=== PATIENT | female | born 1955 | race Caucasian/White ===

== ENCOUNTER → 2016-12-19 | Outpatient (CLI) | payer OTHER ==
--- NOTE | 2016-12-19 15:10 | CT ---
CT of the left lower extremity, without contrast (Jacinto protocol). HISTORY: Left knee osteoarthritis. TECHNIQUE: Axial CT images of the left hip, knee, and ankle are obtained utilizing Jacinto protocol. FINDINGS: Images of the left hip are unremarkable. Images of the left knee demonstrate moderate tricompartment osteoarthritis, most severe within the la teral compartment. Surgical features of intra-articular anterior cruciate ligament reconstruction ivette ntified with femoral and tibial tunnels. Images of the left ankle appear unremarkable. IMPRESSION: 1. Tricompartment left knee osteoarthritis post ACL reconstruction. Jacinto protocol for arthroplasty.
== END ==
LOC: FIMAGING 11:23
PROVIDERS: ATTEND Orthopaedic Surgery
DX: M17.12 Unilateral primary osteoarthritis, left knee (principal)

== ENCOUNTER 2017-01-19 09:08 | Inpatient (IN) | payer OTHER ==
[2017-01-06 09:42] LABS: % IMMATURE GRANULYOCYTES 0.4 % (0.0-1.1); ABSOLUTE IMMATURE GRANULOCYTES 0.03 10^3/uL (0.00-0.10); ADD DIFF? NO; ADD MORPH? NO; ADD SCAN? NO; ATYPICAL LYMPHOCYTE FLAG 0 (0-99); FRAGMENT RBC FLAG 0 (0-99); HEMATOCRIT 39.9 % (38.0-47.0); LEFT SHIFT FLG 0 (0-99); LIPEMIA HEMOLYSIS FLAG 90 (0-99); MEAN CELL HEMOGLOBIN 29.4 pg (27.9-34.1); MEAN CELL HEMOGLOBIN CONCENTR. 35.1 g/dL (32.4-36.7); MEAN CELL VOLUME 83.8 fL (81.5-99.8); MEAN PLATELET VOLUME 8.7 fL (8.7-11.7); PLATELET CLUMPS FLAG 0 (0-99); PLATELET COUNT 207 10^3/uL (150-400); RED BLOOD CELL COUNT 4.76 10^6/uL (4.18-5.33); RED CELL DISTRIBUTION WIDTH 12.1 % (11.5-15.2)
--- NOTE | 2017-01-06 09:51 | CPEKG ---
Heart Rate: 69 RR Interval: 870 P-R Interval: 160 QRSD Interval: 86 QT Interval: 400 QTC Interval: 429 P Adair: 41 QRS [place]air: 30 T Wave Adair: 51 EKG Severity - NORMAL ECG - EKG Impression: SINUS RHYTHM Electronically Signed By: Jesus Sykes 06-Jan-2017 10:54:31
[~2017-01-19 09:08] MED LIST: ACETAMINOPHEN 325 MG TAB PO ONE; CEFAZOLIN 2 GM/DEXTR 100 ML IV ONE; CHLORHEXIDINE GLUC HIBICLENS 118 ML BTL TP ONE; DEXAMETHASONE 4 MG/ML VIAL IVP ONE; FAMOTIDINE 20 MG TAB PO ONE; ROPI/epiNEPH/KETOROLAC JOINT COCKTAIL IU ONE; SKIN ADHESIVE (DERMABOND) 1 EACH TP ONE; TRANEXAMIC ACID 3,000 MG in NS 50 ML IRR ONE; TRANEXAMIC ACID 3,000 MG/50 ML BAG IRR ONE; VANCOMYCIN 1 GM VIAL IV ONE
[2017-01-19] MEDS ORDERED: DEXAMETHASONE 4 MG/ML VIAL ONE (09:25)
[2017-01-19] MEDS ORDERED: FAMOTIDINE 20 MG TAB ONE (09:25)
[2017-01-19] MEDS ORDERED: CEFAZOLIN 2 GM/DEXTROSE/100 ML BAG IV ONE (09:26)
[2017-01-19] MEDS ORDERED: ACETAMINOPHEN 325 MG TAB ONE (09:26)
[2017-01-19] MEDS ORDERED: LIDOCAINE 1% 5 ML SDV ONE (09:26)
[2017-01-19] MEDS ORDERED: LR 1,000 ML IV ONE (09:30)
[2017-01-19] MEDS ORDERED: LIDOCAINE 1% 5 ML SDV ID PRN (09:30)
[2017-01-19] MEDS ORDERED: MIDAZOLAM 2 MG/2 ML VIAL ONE ×2 (11:22→11:35)
[2017-01-19] MEDS ORDERED: PROPOFOL 200 MG/20 ML VIAL ONE ×3 (11:33→12:49)
[2017-01-19] MEDS ORDERED: fentaNYL 100 MCG/2 ML INJ ONE (11:33)
[2017-01-19] MEDS ORDERED: POLYETHYLENE GLYCOL 3350 17 GM PKT PO PRN (11:47)
[2017-01-19] MEDS ORDERED: LACTULOSE 20 GM/30 ML UDCUP PO PRN (11:47)
[2017-01-19] MEDS ORDERED: PROMETHAZINE HCL 25 MG SUPPR PR PRN (11:47)
[2017-01-19] MEDS ORDERED: ONDANSETRON DISINTEGRATING 4 MG TAB PO PRN (11:47)
[2017-01-19] MEDS ORDERED: TEMAZEPAM 15 MG CAP PO PRN (11:47)
[2017-01-19] MEDS ORDERED: PHARMACY PAIN CONSULT 1 EA MISC PRN (11:47)
[2017-01-19] MEDS ORDERED: ONDANSETRON 4 MG/2 ML VIAL IVP PRN (11:47)
[2017-01-19] MEDS ORDERED: DIPHENOXYLATE/ATROPINE LOMOTIL 1 TAB PO PRN (11:47)
[2017-01-19] MEDS ORDERED: diphenhydrAMINE 25 MG CAP PO PRN (11:47)
[2017-01-19] MEDS ORDERED: MAGNESIUM HYDROXIDE 30 ML UDCUP PO PRN (11:47)
[2017-01-19] MEDS ORDERED: PROMETHAZINE HCL 25 MG/ML INJ IVP PRN (11:47)
[2017-01-19] MEDS ORDERED: BISACODYL 10 MG SUPP PR PRN (11:47)
[2017-01-19] MEDS ORDERED: ONDANSETRON 4 MG/2 ML VIAL ONE (12:11)
[2017-01-19] MEDS ORDERED: ROPIVACAINE HCL 150 MG/30 ML INJ ONE (12:11)
[2017-01-19] MEDS ORDERED: MEPERIDINE 25 MG/ML SYR ONE (13:24)
--- NOTE | 2017-01-19 13:27 | POSTOPPROG ---
Post Op Note Date of Operation: 01/19/17 Surgeon: Jolynn Bernard Health Information Systems Technician: Estela Bernard PAc Anesthesiologist: Angel Anesthesia: Spinal Pre-op Diagnosis: L knee DJD Post-op Diagnosis: same Indication: pain Procedure: L TKA with robotic assist Findings: DJD knee Inf/Abcess present in the surg proc area at time of surgery?: No EBL: 50-100
[2017-01-19] MEDS: LR 1,000 ML IV SCH ×2 (15:25→23:45)
[2017-01-19] MEDS: oxyCODONE IR 5 MG TAB PO PRN ×3 (15:31→23:43)
[2017-01-19] MEDS: ACETAMINOPHEN 325 MG TAB PO SCH ×3 (16:01→23:43)
[2017-01-19] MEDS: ceFAZolin 2 GM in D5W 100 ML IV SCH ×2 (16:02→21:13)
--- NOTE | 2017-01-19 16:33 | GOP ---
DATE OF OPERATION: 01/19/2017 SURGEON: Ginny Bernard MD FUEL ASSEMBLER: TEVIN Anne ANESTHESIA: Spinal. PREOPERATIVE DIAGNOSIS: Left knee osteoarthritis. POSTOPERATIVE DIAGNOSIS: Left knee osteoarthritis. PROCEDURE PERFORMED: Left total knee arthroplasty with computer navigation and robotic assist. FINDINGS/PATHOLOGY: Severe lateral and patellofemoral osteoarthritis. ESTIMATED BLOOD LOSS: 30 cc. INDICATIONS: This is a 61-year-old female with severe and progressive pain and deformity of the left knee unresponsive to conservative care. Risks and benefits of the surgical intervention were explained in detail. DESCRIPTION OF PROCEDURE: The patient was brought to the operative room and placed on the table in the supine position. Spinal anesthesia was induced without difficulty. A pneumatic tourniquet was applied about the left proximal thigh, and the leg was prepped and draped in a sterile fashion. The leg becker was applied. After exsanguination by elevation the tourniquet was inflated to 275 mm of mercury. Incision was made anterior medial from the tibial tuberosity to a point 2 cm proximal to the superior pole of the patella. Medial parapatellar arthrotomy was carried out from the superior pole of the patella and posteriorly in line with the fibers of the Type II VMO. The medial collateral ligament was elevated and the infrapatellar fat pad was resected. The patella was everted and the articular surface was excised. A 32 mm patellar button was placed. Attention was turned first to the distal aspect of the left femur. At 3 cm proximal to the medial rise of the femur, 2 percutaneous half pins were placed for fixation of the femoral array. In a similar fashion, 2 pins were placed anteromedial on the tibia for fixation of the tibial array. External land marking and registration of the hip center was performed without difficulty. Internal femoral and tibial registration was carried out without difficulty and the femoral and tibial checkpoints were placed and verified for accuracy. Attention was turned to the femur. The foot print for the size 4 femoral component was cut with the saw using the [facility] robotic system and verified for accuracy against the CT based plan. In a similar fashion, saw was used to cut the footprint for the size 4 tibial component using the [employer] system and verified for accuracy against the CT based plan. The tibial articular surface was excised without difficulty, followed by the intercondylar box cut. The knee was extended and the remnants of the medial and lateral meniscus were excised. The posterior capsule was injected with ropivacaine, epinephrine and Toradol. A size 4 MIS mini-keel tibial tray was positioned. Trial reduction was then carried out. There was excellent range of motion, alignment, and stability using the 9 mm polyethylene. All trials were then removed. The joint was thoroughly irrigated and carefully dried. Two packages of cement and 2 grams of vancomycin were mixed in the vacuum mixer and placed on the fixation surfaces of all surfaces of the components. The components were implanted and all excess cement was thoroughly removed. The permanent 9 mm polyethylene was placed without difficulty. The tourniquet was deflated and all bleeders were coagulated. The wound was thoroughly irrigated and closed using interrupted sutures of 2-0 Vicryl for the joint capsule. The subcu was closed with 3-0 Vicryl and the skin with 4-0 Monocryl. Dermabond and Steri-Strips were applied followed by a compressive dressing. The patient was then moved from the operating room to the recovery room in good condition, having tolerated the procedure well. /[id number]/MODL MTDD
[2017-01-19] MEDS: CYCLOBENZAPRINE 10 MG TAB PO PRN (19:15)
[2017-01-19] MEDS: ASPIRIN 325 MG TAB PO SCH (21:13)
[2017-01-19] MEDS: SENNOSIDES/DOCUSATE SODIUM TAB PO SCH (21:13)
[2017-01-19] MEDS: FAMOTIDINE 20 MG TAB PO SCH (21:13)
[2017-01-20] MEDS: CYCLOBENZAPRINE 10 MG TAB PO PRN ×2 (03:46→12:01)
[2017-01-20] MEDS: oxyCODONE IR 5 MG TAB PO PRN ×3 (03:46→12:01)
[2017-01-20] MEDS: ACETAMINOPHEN 325 MG TAB PO SCH ×2 (05:06→12:01)
[2017-01-20 05:37] LABS: HEMATOCRIT 30.6 % (38.0-47.0); HEMOGLOBIN 10.7 g/dL (12.6-16.3)
[2017-01-20] MEDS ORDERED: LEVOTHYROXINE 150 MCG TAB PO SCH (06:00)
[2017-01-20 07:55] VITALS: TEMP 98
[2017-01-20] MEDS: SENNOSIDES/DOCUSATE SODIUM TAB PO SCH (08:57)
[2017-01-20] MEDS: ASPIRIN 325 MG TAB PO SCH (08:57)
[2017-01-20] MEDS: FAMOTIDINE 20 MG TAB PO SCH (08:58)
[2017-01-20] MEDS ORDERED: ATORVASTATIN CALCIUM 20 MG TAB PO SCH (09:00)
[2017-01-20] MEDS ORDERED: VENLAFAXINE XR 75 MG CAP PO SCH (09:00)
[2017-01-20 11:50] VITALS: BP 132/66; PULSE 71; RESP 20; O2SAT 94
== END 2017-01-20 12:59 | disposition home or self-care (01) | DRG 470 ==
LOC: F3N 09:08
PROVIDERS: ADMIT Orthopaedic Surgery; ATTEND Orthopaedic Surgery
DX: M17.12 Unilateral primary osteoarthritis, left knee (principal)
CPT/HCPCS: 97116-GP; 97161-GP; 97165-GO; C1713; J0171; J0690; J1100; J1885; J2250; J2405; J2704; J2795; J3010; J3370

== ENCOUNTER 2017-08-10 07:15 | Inpatient (IN) | payer OTHER ==
[2017-09-14] MEDS ORDERED: ROPIVACAINE 0.2% 80 MG, EPINEPHrine 0.2 MG, KETOROLAC TROMETHAMINE 30 MG in BAG 0 ML IU ONE (06:00)
[2017-09-14] MEDS ORDERED: TRANEXAMIC ACID 3,000 MG in NS 50 ML IRR ONE (06:00)
--- NOTE | 2017-09-14 07:10 | PDHPUP ---
History & Physical Update H&P update statement: This history and physical update is based on an assessment of the patient which was completed after admission or registration (within 24 hours), but prior to the surgery/procedure. H&P update: H&P reviewed & patient examined, no change in patient's condition since H&P completed
[2017-09-14] MEDS ORDERED: FAMOTIDINE 20 MG TAB PO ONE (07:30)
[2017-09-14] MEDS ORDERED: ceFAZolin 2 GM/DEXTROSE 100 ML IV ONE (07:30)
[2017-09-14] MEDS ORDERED: DEXAMETHASONE 4 MG/ML VIAL IVP ONE (07:30)
[2017-09-14] MEDS ORDERED: ACETAMINOPHEN 325 MG TAB PO ONE (07:30)
[2017-09-14] MEDS ORDERED: LIDOCAINE 1% 2 ML INJ ID PRN (07:32)
[2017-09-14] MEDS ORDERED: LR 1,000 ML IV ONE (07:32)
[2017-09-14] MEDS ORDERED: VANCOMYCIN 1 GM VIAL ONE (07:38)
[2017-09-14] MEDS ORDERED: TRANEXAMIC ACID 3,000 MG/50 ML BAG IRR ONE (07:38)
[2017-09-14] MEDS ORDERED: MIDAZOLAM 2 MG/2 ML VIAL IVP ONE (09:10)
--- NOTE | 2017-09-14 09:10 | PDANEPAE ---
ANE History of Present Illness Knee OA ANE Past Medical History - Cardiovascular History Hx Hypertension: Yes Hx Arrhythmias: No Hx Chest Pain: No Hx Coronary Artery / Peripheral Vascular Disease: No Hx CHF / Valvular Disease: No Hx Palpitations: No Cardiovascular History Comment: high chol - Pulmonary History Hx COPD: No Hx Asthma/Reactive Airway Disease: No Hx Recent Upper Respiratory Infection: No Hx Oxygen in Use at Home: No Hx Sleep Apnea: No Sleep Apnea Screening Result - Last Documented: Negative Pulmonary History Comment: URI 11/2016 - Neurologic History Hx Cerebrovascular Accident: No Hx Seizures: No Hx Dementia: No - Endocrine History Hx Diabetes: No Endocrine History Comment: HYPOTHYROID - Renal History Hx Renal Disorders: No - Liver History Hx Hepatic Disorders: No - Neurological & Psychiatric Hx Hx Neurological and Psychiatric Disorders: Yes Neurological / Psychiatric History Comment: DEPRESSION. HEADACHES - Cancer History Hx Cancer: No - Congenital Disorder History Hx Congenital Disorders: No - GI History Hx Gastrointestinal Disorders: No - Other Health History Other Health History: OSTEOARTHRITIS. HAD PREV SKIN RASH FOR 8 MONTHS. NO DX MADE - Chronic Pain History Chronic Pain: Yes (LT KNEE) - Surgical History Prior Surgeries: LT KNEE ANE Review of Systems Review of Systems: - Exercise capacity METS (RN): 3 METS ANE Patient History - Allergies Allergies/Adverse Reactions: meperidine HCl [From Demerol] Allergy (Verified 08/17/17 11:44) Vomiting - Home Medications Home medications: home medication list seen and reviewed Home Medications: Atorvastatin Calcium [Lipitor 20 mg (*)] 20 mg PO HS 12/21/16 [Last Taken 06:30] Levothyroxine [Synthroid 150 mcg (*)] 150 mcg PO DAILY06 12/21/16 [Last Taken 06:30] amLODIPine BESYLATE [Norvasc 10 mg (*)] 10 mg PO DAILY 01/18/17 [Last Taken 06:30] Multivitamins [Multivitamin (*)] 1 each PO DAILY 07/05/17 [Last Taken 09/07/17] Venlafaxine HCl [Venlafaxine HCl ER] 150 mg PO DAILY 07/05/17 [Last Taken 06:30] - NPO status NPO Since - Liquids (Date): 09/14/17 NPO Since - Liquids (Time): 06:00 NPO Since - Solids (Date): 09/13/17 NPO Since - Solids (Time): 19:00 - Anes Hx Anes Hx: no prior problems - Smoking Hx Smoking Status: Former smoker - Family Anes Hx Family Hx Anesthesia Complications: NEG ANE Labs/Vital Signs - Vital Signs Blood Pressure: 162/81 Heart Rate: 77 Respiratory Rate: 16 O2 Sat (%): 95 Height: 167.64 cm Weight: 96.162 kg ANE Physical Exam - Airway Neck exam: FROM Mallampati Score: Class 2 Mouth exam: normal dental/mouth exam - Pulmonary Pulmonary: no respiratory distress - Cardiovascular Cardiovascular: regular rate and rhythym - ASA Status ASA Status: II ANE Anesthesia Plan Anesthesia Plan: MAC, spinal Regional Anesthesia: adductor canal FNB (Plan adductor canal in PAR)
[2017-09-14] MEDS ORDERED: MIDAZOLAM 2 MG/2 ML VIAL ONE (09:11)
[2017-09-14] MEDS ORDERED: PROPOFOL/EMULSION 500 MG/50 ML BOTTLE IV ONE ×2 (09:16→10:01)
[2017-09-14] MEDS ORDERED: NALOXONE HCL 0.4 MG/ML INJ IVP PRN (09:48)
[2017-09-14] MEDS ORDERED: HYDROmorphONE/DILAUDID 1 MG/ML INJ IVP PRN (09:48)
[2017-09-14] MEDS ORDERED: fentaNYL 100 MCG/2 ML INJ IVP PRN (09:48)
[2017-09-14] MEDS ORDERED: ONDANSETRON 4 MG/2 ML VIAL IVP PRN ×2 (09:48→10:52)
[2017-09-14] MEDS ORDERED: ROPIVACAINE HCL 150 MG/30 ML INJ ONE (10:37)
[2017-09-14] MEDS ORDERED: PROMETHAZINE HCL 25 MG SUPPR PR PRN (10:52)
[2017-09-14] MEDS ORDERED: ONDANSETRON DISINTEGRATING 4 MG TAB PO PRN (10:52)
[2017-09-14] MEDS ORDERED: PROMETHAZINE HCL 25 MG/ML INJ IVP PRN (10:52)
[2017-09-14] MEDS ORDERED: LACTULOSE 20 GM/30 ML UDCUP PO PRN (10:52)
[2017-09-14] MEDS ORDERED: MAGNESIUM HYDROXIDE 30 ML UDCUP PO PRN (10:52)
[2017-09-14] MEDS ORDERED: DIPHENOXYLATE/ATROPINE LOMOTIL 1 TAB PO PRN (10:52)
[2017-09-14] MEDS ORDERED: diphenhydrAMINE 25 MG CAP PO PRN (10:52)
[2017-09-14] MEDS ORDERED: CYCLOBENZAPRINE 10 MG TAB PO PRN (10:52)
[2017-09-14] MEDS ORDERED: BISACODYL 10 MG SUPP PR PRN (10:52)
[2017-09-14] MEDS ORDERED: POLYETHYLENE GLYCOL 3350 17 GM PKT PO PRN (10:52)
[2017-09-14] MEDS ORDERED: TEMAZEPAM 15 MG CAP PO PRN (10:52)
--- NOTE | 2017-09-14 10:52 | POSTOPPROG ---
Post Op Note Date of Operation: 09/14/17 Surgeon: Jolynn Roldan Teacher Of The Sight Impaired: piedad roldan Anesthesiologist: dr. flores Anesthesia: Spinal, Other (Specify) (adductor canal block) Pre-op Diagnosis: R knee OA Post-op Diagnosis: same Indication: right knee pain due to OA that failed conservative measures Procedure: R TKA robot assisted Findings: severe knee OA Inf/Abcess present in the surg proc area at time of surgery?: No EBL: 50-100
[2017-09-14] MEDS ORDERED: ONDANSETRON 4 MG/2 ML VIAL ONE (11:06)
--- NOTE | 2017-09-14 11:08 | POSTANESTH ---
Post Anesthetic Evaluation Cardiovascular Status: Normal, Stable Respiratory Status: Normal, Stable Level of Consciousness/Mental Status: Can Participate in Eval Pain Control: Adequate, Prn Tx Ordered Nausea/Vomiting Control: Adequate, Prn Tx Ordered Complications Possibly Related to Anesthesia: None Noted (Adductor canal done in recovery)
[2017-09-14] MEDS: LR 1,000 ML IV SCH ×2 (12:54→22:31)
[2017-09-14] MEDS: ACETAMINOPHEN 325 MG TAB PO SCH ×3 (12:59→23:27)
[2017-09-14] MEDS: oxyCODONE IR 5 MG TAB PO PRN ×3 (13:47→22:31)
[2017-09-14] MEDS ORDERED: ceFAZolin 2 GM/DEXTROSE 100 ML IV SCH (17:30)
[2017-09-14] MEDS: ceFAZolin 2 GM in D5W 100 ML IV SCH (18:41)
[2017-09-14] MEDS: ASPIRIN 325 MG TAB PO SCH (20:17)
[2017-09-14] MEDS: FAMOTIDINE 20 MG TAB PO SCH (20:17)
[2017-09-14] MEDS: SENNOSIDES/DOCUSATE SODIUM TAB PO SCH (20:17)
[2017-09-14] MEDS ORDERED: ATORVASTATIN CALCIUM 20 MG TAB PO SCH (21:00)
[2017-09-15] MEDS: ceFAZolin 2 GM in D5W 100 ML IV SCH (03:28)
[2017-09-15] MEDS: oxyCODONE IR 5 MG TAB PO PRN ×2 (03:28→09:05)
[2017-09-15 05:08] VITALS: RESP 16
[2017-09-15] MEDS: ACETAMINOPHEN 325 MG TAB PO SCH ×2 (05:31→11:38)
[2017-09-15] MEDS ORDERED: LEVOTHYROXINE 150 MCG TAB PO SCH (06:00)
[2017-09-15 07:23] VITALS: PULSE 70; TEMP 98.7; O2SAT 98
[2017-09-15 08:27] LABS: HEMATOCRIT 31.9 % (38.0-47.0); HEMOGLOBIN 11.3 g/dL (12.6-16.3)
[2017-09-15] MEDS: FAMOTIDINE 20 MG TAB PO SCH (08:57)
[2017-09-15] MEDS: ASPIRIN 325 MG TAB PO SCH (08:57)
[2017-09-15] MEDS: SENNOSIDES/DOCUSATE SODIUM TAB PO SCH (08:58)
--- NOTE | 2017-09-15 08:58 | SOAPPROG ---
SOAP Progress Note Assessment/Plan: Assessment: Patient is doing well POD 1 s/p R TKA Pain management: pain is well controlled on oral pain meds. VTE ppx: recommend aspirin daily for 3 weeks, cont MIKY and SCDs Anemia: level is expected initially postop. Asymptomatic. Continue to monitor D/c planning: d/c to home today pending release from PT incision dressing: placed new dressing, gave patient detailed instructions Plan: 09/15/17 08:57 Subjective: Janina is doing well today, denies SOB, chest pain and N/V. Objective: Vital Signs Temp Pulse Resp BP Pulse Ox 37.1 C 70 16 145/75 H 98 09/15/17 07:22 09/15/17 07:22 09/15/17 07:22 09/15/17 07:22 09/15/17 07:22 Laboratory Results 09/15/17 08:20 09/14/17 09/15/17 09/16/17 05:59 05:59 05:59 Intake Total 4330 Output Total 1105 Balance 3225 RLE: incision dressing has mild drainage, +pf/df ICD10 Worksheet Patient Problems: Problems Problem Status Onset Primary localized osteoarthritis of right knee Acute Primary localized osteoarthritis of left knee Acute
[2017-09-15] MEDS ORDERED: VENLAFAXINE XR 150 MG CAP PO SCH (09:00)
[2017-09-15 09:01] VITALS: BP 132/66
--- NOTE | 2017-09-15 12:41 | GOP ---
[f rep st] OPERATIVE REPORT DATE OF OPERATION: 09/14/2017 SURGEON: Ginny Bernard MD DIE MAINTENANCE: Estela Bernard PA-C. ANESTHESIA: Spinal. PREOPERATIVE DIAGNOSIS: Right knee osteoarthritis. POSTOPERATIVE DIAGNOSIS: Right knee osteoarthritis. PROCEDURE PERFORMED: Right total knee arthroplasty with computer navigation and robotic assist. FINDINGS: ESTIMATED BLOOD LOSS: 30 ml. INDICATIONS: This is a 62-year-old female with severe and progressive pain and deformity of the right knee unresponsive to conservative care. Risks and benefits of the surgical intervention were explained in detail. DESCRIPTION OF PROCEDURE: The patient was brought to the operative room and placed on the table in the supine position. Spinal anesthesia was induced without difficulty. A pneumatic tourniquet was applied about the right proximal thigh, and the leg was prepped and draped in a sterile fashion. The leg becker was applied. After exsanguination by elevation the tourniquet was inflated to 275 mm of mercury. Incision was made anterior medial from the tibial tuberosity to a point 2 cm proximal to the superior pole of the patella. Medial parapatellar arthrotomy was carried out from the superior pole of the patella and posteriorly in line with the fibers of the Type II VMO. The medial collateral ligament was elevated and the infrapatellar fat pad was resected. The patella was everted and the articular surface was excised. A 35 mm patellar button was placed. Attention was turned first to the distal aspect of the right femur. At 3 cm proximal to the medial rise of the femur, 2 percutaneous half pins were placed for fixation of the femoral array. In a similar fashion, 2 pins were placed anteromedial on the tibia for fixation of the tibial array. External land marking and registration of the hip center was performed without difficulty. Internal femoral and tibial registration was carried out without difficulty and the femoral and tibial checkpoints were placed and verified for accuracy. Attention was turned to the femur. The foot print for the size 4 femoral component was cut with the saw using the [employer] robotic system and verified for accuracy against the CT based plan. In a similar fashion, saw was used to cut the footprint for the size 4 tibial component using the [employer] system and verified for accuracy against the CT based plan. The tibial articular surface was excised without difficulty, followed by the intercondylar box cut. The knee was extended and the remnants of the medial and lateral meniscus were excised. The posterior capsule was injected with ropivacaine, epinephrine and Toradol. A size 4 MIS mini-keel tibial tray was positioned. Trial reduction was then carried out. There was excellent range of motion, alignment, and stability using the 9 mm polyethylene. All trials were then removed. The joint was thoroughly irrigated and carefully dried. Two packages of cement and 2 grams of vancomycin were mixed in the vacuum mixer and placed on the fixation surfaces of all surfaces of the components. The components were implanted and all excess cement was thoroughly removed. The permanent 9 mm polyethylene was placed without difficulty. The tourniquet was deflated and all bleeders were coagulated. The wound was thoroughly irrigated and closed using interrupted sutures of 2-0 Vicryl for the joint capsule. The subcu was closed with 3-0 Vicryl and the skin with 4-0 Monocryl. Dermabond and Steri-Strips were applied followed by a compressive dressing. The patient was then moved from the operating room to the recovery room in good condition, having tolerated the procedure well. /[id number]/MODL MTDD
--- NOTE | 2017-09-15 13:15 | ASDISCHSUM ---
Discharge Information Plan Status:Home with No Needs Medically Cleared to Leave: Discharge Date:09/15/2017 12:02 PM CM D/C Disposition:Home, Routine, Self-Care ADT D/C Disposition:Home, Routine, Self-Care Projected Discharge Date:09/15/2017 12:02 PM Transportation at D/C: Discharge Delay Reason: Follow-Up Date:09/15/2017 12:02 PM Discharge Slot: Final Diagnosis: Placement Information Patient Contact Information Contact Name:EDITH Relationship: Address:[address] [place] [address] City:[place] Alternate Phone: State/Zip Code:[place] [address] Email: Financial Information Financial Class:HMO and PPO Plans Primary Plan Desc:DANII ZAMBRANO PPO Primary Plan Number:[id number] Secondary Plan Desc: Secondary Plan Number: Assessment Information Intervention Information
--- NOTE | 2017-09-15 23:09 | GDS ---
[f rep st] DISCHARGE SUMMARY ADMISSION DIAGNOSIS: Right knee osteoarthritis. DISCHARGE DIAGNOSIS: Right knee osteoarthritis. PROCEDURE: Right total knee arthroplasty, robot assisted. VTE PROPHYLAXIS: Aspirin recommended 3 weeks daily. BRIEF DESCRIPTION OF HOSPITAL STAY: Patient was admitted for an elective joint arthroplasty. The pa anne-marient tolerated the procedure well and has passed physical therapy. The patient was given appropriat e antibiotic prophylaxis and venous thromboembolism prophylaxis. The patient's pain was well control led on oral pain medication, patient was holding down food, and had urinated. Decision was made to d ischarge the patient. The patient was given post-operative prescriptions pre-operatively. PLAN: Please follow up as scheduled with Dr. Bernard at [facility] October 06 at 8:45 a.m. /[id number]/MODL
== END 2017-09-15 12:02 | disposition home or self-care (01) | DRG 470 ==
LOC: F3N 09-14 06:53
PROVIDERS: ADMIT Orthopaedic Surgery; ATTEND Orthopaedic Surgery
DX: M17.11 Unilateral primary osteoarthritis, right knee (principal); I10 Essential (primary) hypertension; E78.00 Pure hypercholesterolemia, unspecified; E03.9 Hypothyroidism, unspecified; F32.9 Major depressive disorder, single episode, unspecified; Z87.891 Personal history of nicotine dependence
CPT/HCPCS: 97110-GP; 97116-GP; 97161-GP; 97165-GO; 97530-GP; C1713; J0171; J0690; J1100; J1885; J2250; J2405; J2704; J2795; J3370

== ENCOUNTER → 2017-08-29 | Outpatient (CLI) | payer OTHER | LOC: FIMAGING 06:48 | PROVIDERS: ATTEND Orthopaedic Surgery | DX: M17.11 Unilateral primary osteoarthritis, right knee (principal); M25.461 Effusion, right knee ==

== ENCOUNTER → 2018-09-13 | Outpatient (CLI) | payer OTHER | LOC: FIMAGING 15:38 | PROVIDERS: ATTEND Family Medicine Sports Medicine | DX: Z12.31 Encounter for screening mammogram for malignant neoplasm of breast (principal) ==